=== PATIENT | female | born 1950 | race Caucasian/White ===

== ENCOUNTER 2025-02-11 15:41 | Emergency (ER) | payer OTHER ==
[~2025-02-11] VITALS: Ht 152.4 cm; Wt 72.7 kg
[~2025-02-11 15:41] MED LIST: DOCU-119 PO; HYDR2TAB37 PO; METO50 PO; OMEP10SU2 PO; OXYC-158 PO; TRAM50TA5 PO
[2025-02-11 16:10] VITALS: BP 117/58; PULSE 84; RESP 18; TEMP 98; O2SAT 99
[2025-02-11] MEDS ORDERED: TRAM50TA5 PO (22:27)
== END 2025-02-11 23:14 | disposition home or self-care (01) ==
LOC: EMS 15:41
DX: S92.351A Displaced fracture of fifth metatarsal bone, right foot, initial encounter for closed fracture (principal); S80.01XA Contusion of right knee, initial encounter; I10 Essential (primary) hypertension; Z79.899 Other long term (current) drug therapy; W19.XXXA Unspecified fall, initial encounter; X50.1XXA Overexertion from prolonged static or awkward postures, initial encounter; Y93.89 Activity, other specified; Y92.89 Other specified places as the place of occurrence of the external cause; Y99.8 Other external cause status
CPT/HCPCS: 99284; 73562-TC; 73610-TC; 73630-TC; Z7502; Z7610